=== PATIENT | female | born 2000 | race American Indian/Alaskan Native ===

== ENCOUNTER 2021-01-14 13:25 | Emergency (ER) | payer SELFPAY ==
--- NOTE | 2021-01-14 14:08 | EDM.PDOC ---
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 The patient states she is unsure of her LMP, but believes is was over two months ago; she has taken two positive tests in the past four weeks with the last two days ago. She states she woke to heavy bleeding, bilateral lower abdominal cramping, and bilateral low back pain. She denies recent illness, fever, shaking chills, shortness of breath, palpitations, dysuria, constipation, or diarrhea. She has taken no medications or performed any supportive cares for her cramping. She denies tobacco, alcohol, or recreational drug use. Lower Abdominal Pain Score (Numeric/FACES): 8 - Related Data Allergies Allergy/AdvReac Type Severity Reaction Status Date / Time ibuprofen Allergy Cannot Verified 01/14/21 13:55 Remember Penicillins Allergy Cannot Verified 01/14/21 13:55 Remember Home Meds: Home Meds . [No Known Home Meds] 01/14/21 [History] ED ROS GENERAL - Review of Systems Review Of Systems: Comprehensive ROS is negative, except as noted in HPI. ED EXAM, GI/ABD - Physical Exam Exam: See Below Exam Limited By: Intoxication General Appearance: Alert, Mild Distress (Bilateral lower quadrant abdominal pain) Eyes: Bilateral: Normal Appearance, EOMI Ears: Normal External Exam, Hearing Grossly Normal Nose: Normal Inspection, Normal Mucosa, No Blood Throat/Mouth: Normal Inspection, Normal Oropharynx, Normal Voice, No Airway Compromise Head: Atraumatic, Normocephalic Neck: Normal Inspection, Full Range of Motion Respiratory/Chest: No Respiratory Distress, Lungs Clear, Normal Breath Sounds, No Accessory Muscle Use, Chest Non-Tender Cardiovascular: Normal Peripheral Pulses, Regular Rate, Rhythm, No Gallop, No Murmur, No Rub GI/Abdominal Exam: Soft, No Distention, No Abnormal Bruit, No Mass, Pelvis Stable, Guarding, Tender (To palpation of bilateral lower quadrants), Abnormal Bowel Sounds (Hypoactive). No: Rigid, Rebound (Female) Exam: Deferred Rectal (Female) Exam: Deferred Back Exam: Normal Inspection, Full Range of Motion Extremities: Normal Inspection, Normal Range of Motion, Normal Capillary Refill Neurological: Alert, Oriented, CN II-XII Intact, Normal Cognition, Normal Gait, No Motor/Sensory Deficits Psychiatric: Normal Affect, Normal Mood, Tearful Skin Exam: Warm, Dry, Intact, Normal Color, No Rash. No: Cyanosis, Jaundice, Mottled, Pallor Course - Vital Signs Last Recorded V/S: Last Vital Signs Temp 97.3 F 01/14/21 13:56 Pulse 77 01/14/21 13:56 Resp 20 01/14/21 13:56 BP 120/59 L 01/14/21 13:56 Pulse Ox 100 01/14/21 13:56 - Orders/Labs/Meds Labs: Laboratory Tests 01/14/21 01/14/21 01/14/21 Range/Units 14:25 14:25 15:47 WBC 6.3 (5.0-10.0) 10^3/uL RBC 4.67 (4.2-5.4) 10^6/uL Hgb 12.8 (12.0-16.0) g/dL Hct 40.4 (37.0-47.0) % MCV 86.5 (80-100) fL MCH 27.4 (27.0-34.0) pg MCHC 31.7 L (33.0-35.0) g/dL Plt Count 282 (150-450) 10^3/uL Neut % (Auto) 60.3 (42.2-75.2) % Lymph % (Auto) 27.0 (20.5-50.1) % Marion % (Auto) 9.1 H (2-8) % Eos % (Auto) 3.3 H (1.0-3.0) % Baso % (Auto) 0.3 (0.0-1.0) % HCG, Quant 2471 H (0-6) mIU/mL Urine Color Red (YELLOW) Urine Appearance Turbid (CLEAR) Urine pH 5.5 (5.0-9.0) Ur Specific Gantt 1.025 (1.005-1.030) Urine Protein >=300 H (NEGATIVE) Urine Glucose (UA) Negative (NEGATIVE) Urine Ketones 15 H (NEGATIVE) Urine Occult Blood Large H (NEGATIVE) Urine Nitrite Positive H (NEGATIVE) Urine Bilirubin Large H (NEGATIVE) Urine Urobilinogen 2.0 H (0.2-1.0) mg/dL Ur Leukocyte Esterase Large H (NEGATIVE) Urine RBC Packed H (0-5) /HPF Urine WBC 0-5 (0-5/HPF) /HPF Ur Epithelial Cells Rare (NOT SEEN) /HPF Urine Mucus Rare (NOT SEEN) /LPF Meds: Medications Discontinued Medications Generic Name Dose Route Start Last Admin Trade Name Freq PRN Reason Stop Dose Admin Acetaminophen 1,000 mg 01/14/21 15:07 01/14/21 15:12 Acetaminophen 500 Mg Tab PO 01/14/21 15:08 1,000 mg ONETIME ONE Administration - Radiology Interpretation Free Text/Narrative:: [facility] Final Radiology Report Call: [phone] assistance Online chat: [email or web address] Define Name: HUANG PEREZ Age: 20Years F Date: 01/14/2021 SSN: -- : 2000 Study: US OB 1ST TRI SGL 1ST GEST Requesting Physician: Patsy Mccormick Images: 20 Addl Studies: Provided Clinical History: Vaginal Bleeding; HCG Quant 2400 Contrast: Without Contrast Medium: Contrast Amount: Contrast Method: Page 1 of 2 PROCEDURE INFORMATION: Exam: US First Trimester, Transabdominal Exam date and time: 01/14/2021 4:32 PM Age: 20 years old Clinical indication: Lmp or gestational age (in weeks): PT unsure of lmp; Antepartum complications; Bleeding; ; Additional info: Vaginal bleeding; Hcg quant 2400 TECHNIQUE: Imaging protocol: Real-time transabdominal obstetrical ultrasound of the maternal pelvis and a first trimester , less than 14 weeks 0 days, with image documentation. COMPARISON: No relevant prior studies available. FINDINGS: Gestation: Not identified Embryonic/ heart rate: NA Extra-embryonic membranes/Placenta: Unremarkable. No subchorionic bleed. Amniotic fluid: Amniotic fluid/chorionic fluid is normal for gestational age. BIOMETRY: Gestational age (AUA): NA MATERNAL: Uterus: Unremarkable. No evidence of intrauterine gestational sac or yolk sac. Cervix: Unremarkable. Right adnexa: Unremarkable. Left adnexa: Unremarkable. Intraperitoneal space: No intraperitoneal free fluid. IMPRESSION: No evidence of viable intrauterine gestation. Thank you for allowing us to participate in the care of your patient. Dictated and Authenticated by: Bam Mcclellan MD 01/14/2021 5:44 PM Central Time ([place] & [place]) - Re-Assessments/Exams Free Text/Narrative Re-Assessment/Exam: 01/14/21 CBC, HCG Quant, and UA obtained. Will obtain US as appropriate via HCG levels. Acetaminophen administered for abdominal cramping. Findings of examination, lab work, and imaging reviewed with patient. Supportive cares for cramping discussed. Patient instructed to follow up with primary care provider regarding todays visit. Red flag signs and symptoms which would warrant immediate reevaluation reviewed. Patient verbalized understanding and agreement with the plan of care. Departure - Departure Time of Disposition: 17:50 Disposition: Home, Self-Care 01 Condition: Good Clinical Impression: Complete spontaneous - Discharge Information *PRESCRIPTION DRUG MONITORING PROGRAM REVIEWED*: Not Applicable *COPY OF PRESCRIPTION DRUG MONITORING REPORT IN PATIENT KENNETH: Not Applicable Instructions: Miscarriage, [id number], Managing Loss Forms: ED Department Discharge Additional Instructions: 1.) You may take acetaminophen (Tylenol) 650-1000mg every six hours, as pain persists. 2.) You may apply a warm compress to the abdomen for pelvic cramps. 3.) Drink plenty of water to stay hydrated. 4.) Eat small, snack-sized meals to avoid nausea. Eat a bland diet, avoid spicy, greasy, high-fat foods. 5.) Follow up with your primary care provider in 5-7 days regarding today's visit. Sepsis Event Note (ED) - Evaluation Sepsis Screening Result: No Definite Risk
[2021-01-14] MEDS ORDERED: Acetaminophen 500 MG Tab PO ONE (15:07)
--- NOTE | 2021-01-14 17:44 | US ---
PROCEDURE INFORMATION: Exam: US First Trimester, Transabdominal Exam date and time: 01/14/2021 4:32 PM Age: 20 years old Clinical indication: Lmp or gestational age (in weeks): PT unsure of lmp; Antepartum complications; Bleeding; ; Additional info: Vaginal bleeding; Hcg quant 2400 TECHNIQUE: Imaging protocol: Real-time transabdominal obstetrical ultrasound of the maternal pelvis and a first trimester , less than 14 weeks 0 days, with image documentation. COMPARISON: No relevant prior studies available. FINDINGS: Gestation: Not identified Embryonic/ heart rate: NA Extra-embryonic membranes/Placenta: Unremarkable. No subchorionic bleed. Amniotic fluid: Amniotic fluid/chorionic fluid is normal for gestational age. BIOMETRY: Gestational age (AUA): NA MATERNAL: Uterus: Unremarkable. No evidence of intrauterine gestational sac or yolk sac. Cervix: Unremarkable. Right adnexa: Unremarkable. Left adnexa: Unremarkable. Intraperitoneal space: No intraperitoneal free fluid. IMPRESSION: No evidence of viable intrauterine gestation.
== END 2021-01-14 17:57 | disposition home or self-care (01) ==
LOC: DL.ED 13:25
DX: O03.9 Complete or unspecified spontaneous abortion without complication (principal); Z88.0 Allergy status to penicillin; Z88.8 Allergy status to other drugs, medicaments and biological substances
CPT/HCPCS: 36415; 76801; 81001; 84702; 85025; 87086; 99284; A9270